=== PATIENT | female | born 1990 | race Caucasian/White ===

== ENCOUNTER 2023-10-08 13:46 | Emergency (ER) | payer SELFPAY ==
--- NOTE | 2023-10-08 14:06 | XRR_ITS ---
PROCEDURE INFORMATION: Exam: XR Right Hand Exam date and time: 10/08/2023 2:18 PM Age: 32 years old Clinical indication: Pain; Hand; Right; Additional info: Injury, PT says she hit it with thorns and it became swollen TECHNIQUE: Imaging protocol: Radiologic exam of the right hand. Views: 3 or more views. COMPARISON: No relevant prior studies available. FINDINGS: Bones/joints: Normal. No radiopaque foreign material. No acute osseous or joint abnormality. Soft tissues: Normal. XR/XR hand RT min 3V* [id number] IMPRESSION: No acute findings.
[2023-10-08 14:08] VITALS: BP 120/73; PULSE 87; RESP 16; TEMP 36.6; O2SAT 99
--- NOTE | 2023-10-08 17:02 | ED_ITS ---
HPI - Wound/Laceration General: Chief Complaint: Wound/Laceration Stated Complaint: Right hand swelling Time Seen by Provider: 10/08/23 16:48 Source: patient Mode of arrival: ambulatory Limitations: no limitations History of Present Illness: 32-year-old female states that she had b een in the [place] and had a lot of scratches to her hand she states she had some redness and pain in her right hand over the last 2 days denies any fevers denies any drainage she has no pain with range of motion. Associated symptoms: Denies chills, fever(s), nausea or vomiting Review of Systems Const: Denies: fever(s), chills, body aches or change in appetite ENMT: Denies: throat pain or dental pain Card: Denies: chest pain Resp: Denies: dyspnea GI: Denies: abdominal pain, nausea, vomiting or diarrhea Musc: Reports: extremity pain; Denies: neck pain or back pain Skin/Breast: Reports: rash Neuro: Denies: headache(s) Physical Exam Const: COMMON NORMALS: no acute distress, patient oriented x3 and healthy appearing HENMT: COMMON NORMALS: normocephalic and atraumatic HEAD & SCALP: normocephalic and atraumatic Neck/C-Spine: COMMON NORMALS: full ROM and supple Chest: COMMONS NORMALS: normal inspection of the chest Resp: COMMON NORMALS: normal respiratory effort Extremity: NARRATIVE EXTREMITY EXAM: Multiple scratches to right hand with some slight erythema and mild swelling no joint tenderness no signs of septic joint Neuro: COMMON NORMALS: patient oriented x3, moves all extremities and no focal motor deficits Psych: COMMON NORMALS: mental status grossly normal, Normal thought process present and cooperative THOUGHT PROCESS: Normal thought process present Skin: COMMON NORMALS: no rashes or lesions noted and no wounds GENERAL SKIN EXAM: no rashes or lesions noted Course Vital Signs: Vital signs: Vital Signs Temperature 97.8 F 10/08/23 14:08 Pulse Rate 87 10/08/23 14:08 Respiratory Rate 16 10/08/23 14:08 Blood Pressure 120/73 10/08/23 14:08 Pulse Oximetry 99 10/08/23 14:08 MDM - Wound/Laceration Medical Decision Making Slight erythema to right hand likely mild cellulitis patient no signs of septic joint no signs of abscess will start on antibiotics and anti-inflammatories Medical Records I reviewed the patient's medical records. Lab Data Radiology Impressions Hand X-Ray 10/08/23 14:06 IMPRESSION: No acute findings. All radiology interpretation(s) finalized by discharge Discharge Plan Discharge Patient Disposition: Home Clinical Impression: Cellulitis Condition: Stable Prescriptions: New cephalexin 500 mg capsule 500 mg PO TID 7 Days Qty: 21 0RF Naprosyn 500 mg tablet 500 mg PO BID PRN (Reason: pain) Qty: 20 0RF Discharge Orders: Discharge ED (Routine); Ordered 10/08/23 Ordered By: Cosme Glover Discharge Diet: Advance as tolerated Discharge Activity: Resume usual activity Patient Instructions: Cellulitis (ED) Coding Level of Care Code ED Profile [employer] Operator Tape Control for Tangela Copeland
[2023-10-08] MEDS: naproxen 500 mg Tablet PO (17:06)
[2023-10-08] MEDS: cephALEXin 500 mg Capsule PO (17:06)
[2023-10-08 17:35] VITALS: BP 131/73; PULSE 81; RESP 16; TEMP 36.6; O2SAT 100
== END 2023-10-08 17:10 | disposition home or self-care (01) ==
PROVIDERS: Emergency Provider Emergency Medicine
DX: L03.113 Cellulitis of right upper limb (principal)
CPT/HCPCS: 73130; 99283